=== PATIENT | female | born 2000 | race American Indian/Alaskan Native ===

== ENCOUNTER 2020-12-13 19:50 | Emergency (ER) | payer OTHER, SELFPAY ==
[2020-12-13 22:24] VITALS: BP 117/73
--- NOTE | 2020-12-13 22:43 | Emergency Department Report ---
ED General Adult HPI - General Chief complaint: Upper Respiratory Infection Stated complaint: COVID POSITIVE Time Seen by Provider: 12/13/20 22:38 Source: patient Mode of arrival: Ambulatory Limitations: No Limitations - History of Present Illness Initial comments: Patient is a 20-year-old -Hond[place] female who presents for URI symptoms cough head congestion sore throat x2 days. Patient states she had a positive rapid Covid screen today panics now. Patient denies fevers or chills there is no nausea no vomiting patient is tolerating p.o. intake. Patient denies suspicious contacts does have one family member at home and is not vaccinated. Symptoms are exacerbated by activity symptoms are relieved by noting tried period. - Related Data Previous Rx's Medication Instructions Recorded Last Taken Type Guaifenesin/Pseudoephedrne HCl 1 each PO BID PRN #20 tab.er.12h 12/13/20 Unknown Rx [Mucinex D ER 1,200-120 mg Tab] Ibuprofen [Motrin 800 MG tab] 800 mg PO Q8HR PRN #30 tablet 12/13/20 Unknown Rx Nystatin [Nystatin SUSP] 10 ml PO TID #240 ml 12/13/20 Unknown Rx Allergies Allergy/AdvReac Type Severity Reaction Status Date / Time No Known Allergies Allergy Unverified 12/13/20 21:53 ED Review of Systems ROS: Stated complaint: COVID POSITIVE Other details as noted in HPI Constitutional: malaise. denies: chills, fever Eyes: denies: eye pain, eye discharge, vision change ENT: throat pain, congestion Respiratory: cough. denies: shortness of breath, wheezing Cardiovascular: denies: chest pain, palpitations Endocrine: no symptoms reported Gastrointestinal: denies: abdominal pain, nausea, vomiting, diarrhea Genitourinary: denies: urgency, dysuria, discharge Musculoskeletal: denies: back pain, joint swelling, arthralgia Skin: denies: rash, lesions Neurological: denies: headache, weakness, paresthesias Psychiatric: denies: anxiety, depression Hematological/Lymphatic: denies: easy bleeding, easy bruising ED Past Medical Hx - Past Medical History Previous Medical History?: No - Surgical History Past Surgical History?: No - Social History Smoking Status: Never Smoker - Medications Home Medications: Home Medications Medication Instructions Recorded Confirmed Last Taken Type Guaifenesin/Pseudoephedrne HCl 1 each PO BID PRN #20 tab.er.12h 12/13/20 Unknown Rx [Mucinex D ER 1,200-120 mg Tab] Ibuprofen [Motrin 800 MG tab] 800 mg PO Q8HR PRN #30 tablet 12/13/20 Unknown Rx Nystatin [Nystatin SUSP] 10 ml PO TID #240 ml 12/13/20 Unknown Rx ED Physical Exam - General Limitations: No Limitations General appearance: alert, in no apparent distress - Head Head exam: Present: atraumatic, normocephalic - Eye Eye exam: Present: PERRL, EOMI Pupils: Present: normal accommodation - ENT ENT exam: Present: mucous membranes moist, TM's normal bilaterally, normal external ear exam - Expanded ENT Exam Expanded Ear exam: Present: normal external inspection Mouth exam: Absent: tongue normal (tongue thrush noted less than 1 inch mahesh no swelling no lesions. ), tongue elevation Throat exam: Negative: tonsillar erythema, tonsillomegaly, tonsillar exudate, R peritonsillar mass, L peritonsillar mass - Neck Neck exam: Present: normal inspection, full ROM. Absent: tenderness, lymphadenopathy - Respiratory Respiratory exam: Present: normal lung sounds bilaterally. Absent: respiratory distress, wheezes, stridor, chest wall tenderness - Cardiovascular Cardiovascular Exam: Present: regular rate, normal rhythm, normal heart sounds. Absent: systolic murmur, diastolic murmur, rubs, gallop - GI/Abdominal GI/Abdominal exam: Present: soft, normal bowel sounds. Absent: distended, tenderness, bruit, hernia - Rectal Rectal exam: Present: deferred - Extremities Exam Extremities exam: Present: normal inspection, full ROM, normal capillary refill. Absent: tenderness - Back Exam Back exam: Present: normal inspection, full ROM. Absent: CVA tenderness (R), CVA tenderness (L) - Neurological Exam Neurological exam: Present: alert, oriented X3, CN II-XII intact, normal gait - Expanded Neurological Exam Expanded Patient oriented to: Present: person, place, time Speech: Present: fluid speech Best Eye Response ([place]): (4) open spontaneously Best Motor Response ([place]): (6) obeys commands Best Verbal Response ([place]): (5) oriented Dante Total: 15 - Psychiatric Psychiatric exam: Present: normal affect, normal mood - Skin Skin exam: Present: warm, dry, intact, normal color. Absent: rash ED Course Vital Signs 12/13/20 21:49 Temperature 98.3 F Pulse Rate 60 Respiratory 16 Rate Blood Pressure 117/73 O2 Sat by Pulse 100 Oximetry ED Medical Decision Making - Medical Decision Making Patient appears well, well-nourished, well-hydrated, developmentally appropriate, there is no shortness of breath, lungs are clear there is no stridor no rhonchi's no rales, abdomen soft nontender patient is tolerating p.o. intake, patient is alert oriented x3 amatory with no acute distress, plan NSAIDs as needed, short burst steroids, continue to hydrate, follow-up with PCP in 2 to 3 days virtually as directed. , Self quarantine times 10 to 14 days, return to emergency should symptoms worsen. Patient verbalized agreement and understanding of discharge plan. Patient will be DC'd home in stable condition at this time. Critical care attestation.: If time is entered above; I have spent that time in minutes in the direct care of this critically ill patient, excluding procedure time. ED Disposition Clinical Impression: Person under investigation for COVID-19 Disposition: DC-01 TO HOME OR SELFCARE Is pt being admited?: No Does the pt Need Aspirin: No Condition: Stable Instructions: COVID-19: How to Protect Yourself and Others - CDC, COVID-19 Additional Instructions: take medications as directed, hydrate as directed, return to emergency if symptoms worsen. Prescriptions: Ibuprofen [Motrin 800 MG tab] 800 mg PO Q8HR PRN #30 tablet PRN Reason: pain fever Guaifenesin/Pseudoephedrne HCl [Mucinex D ER 1,200-120 mg Tab] 1 each PO BID PRN #20 tab.er.12h PRN Reason: cough and congestion Nystatin [Nystatin SUSP] 10 ml PO TID #240 ml Referrals: [facility] [Provider Group] - 3-5 Days Forms: Work/School Release Form(ED) Time of Disposition: 22:59
== END 2020-12-13 23:15 | disposition home or self-care (01) ==
LOC: ED 19:50
DX: J02.9 Acute pharyngitis, unspecified (principal); R09.89 Other specified symptoms and signs involving the circulatory and respiratory systems; Z20.822 Contact with and (suspected) exposure to COVID-19
CPT/HCPCS: 99282

== ENCOUNTER 2021-10-04 15:57 | Emergency (ER) | payer SELFPAY ==
[2021-10-04 16:04] VITALS: BP 108/81
== END 2021-10-04 17:44 | disposition left against medical advice (07) ==
LOC: ED 15:57
DX: Z04.1 Encounter for examination and observation following transport accident (principal); Z53.21 Procedure and treatment not carried out due to patient leaving prior to being seen by health care provider; V87.7XXA Person injured in collision between other specified motor vehicles (traffic), initial encounter; Y93.89 Activity, other specified; Y92.488 Other paved roadways as the place of occurrence of the external cause; Y99.8 Other external cause status

== ENCOUNTER 2021-10-05 01:41 | Emergency (ER) | payer BC ==
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
[2021-10-05] MEDS ORDERED: KETOROLAC 60 MG/2 ML INJ IM ONE (08:26)
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
[2021-10-05 09:35] VITALS: BP 106/44
== END 2021-10-05 09:35 | disposition home or self-care (01) ==
LOC: ED 01:41
DX: S60.229A Contusion of unspecified hand, initial encounter (principal); S06.0X9A Concussion with loss of consciousness of unspecified duration, initial encounter; F12.90 Cannabis use, unspecified, uncomplicated; V89.2XXA Person injured in unspecified motor-vehicle accident, traffic, initial encounter; Y93.89 Activity, other specified; Y92.89 Other specified places as the place of occurrence of the external cause; Y99.8 Other external cause status
CPT/HCPCS: 70450; 73130; 96372; 99284; J1885